=== PATIENT | female | born 1985 | race Caucasian/White ===

== ENCOUNTER → 2016-04-29 | Outpatient (CLI) | payer OTHER ==
[2016-04-29 16:50] LABS: PREG INTERNAL NEGATIVE QC NEG CLEAR BACKGROUND; PREG INTERNAL POSITIVE QC POS CONTROL LINE
== END | disposition home or self-care (01) ==
LOC: C.LAB1850 15:16
PROVIDERS: ATTEND Obstetrics & Gynecology
DX: N91.5 Oligomenorrhea, unspecified (principal)

== ENCOUNTER → 2016-04-29 | Outpatient (CLI) | payer OTHER | END | disposition home or self-care (01) | LOC: C.PATHSPEC 08:58 | PROVIDERS: ATTEND Obstetrics & Gynecology | DX: N64.3 Galactorrhea not associated with childbirth (principal) ==

== ENCOUNTER → 2017-11-14 | Outpatient (CLI) | payer OTHER | END | disposition home or self-care (01) | LOC: C.LABSPEC 18:17 | PROVIDERS: ATTEND Family Medicine | DX: R30.0 Dysuria (principal) ==